=== PATIENT | female | born 1960 | race Hispanic/Latino ===

== ENCOUNTER 2017-11-13 07:29 | Day surgery (SDC) | payer BC ==
[2017-11-13] MEDS ORDERED: ECOTRIN PO ONE (08:04)
[2017-11-13] MEDS ORDERED: NACL 0.9% 500 ML 500 ML IV SCH (09:00)
[2017-11-13] MEDS ORDERED: HEPARIN 10,000 UNITS/10 ML ONE (10:19)
[2017-11-13] MEDS ORDERED: HEPARIN/NS 5000 UNIT/500ML(CATH LAB) 1,000 ML IR ONE (10:19)
[2017-11-13] MEDS ORDERED: XYLOCAINE 2% INFILTRATI ONE (10:19)
[2017-11-13] MEDS ORDERED: CALAN ONE (10:19)
[2017-11-13] MEDS ORDERED: VERSED ONE (10:19)
[2017-11-13] MEDS ORDERED: SUBLIMAZE ONE (10:19)
[2017-11-13] MEDS ORDERED: NITROGLYCERIN SYRINGE 3 ML ONE (10:20)
--- NOTE | 2017-11-13 11:33 | Cardiac Catherization Report ---
INDICATION FOR PROCEDURE: A 57-year-old white female being followed by Dr. Nayeli Gillespie in the office with complaints of chest tightness and shortness of breath on moderate exertion of 2 years' duration, recently getting worse. The patient has a stress EKG performed, which was found to be ischemic with ST-T changes; however, the patient exercised for 3 minutes and 23 seconds and attained a heart rate of 165 beats per minute. Peak blood pressure was 184/69. Because of chest tightness and abnormal stress EKG, she was scheduled for cardiac catheterization for definitive diagnosis and treatment. The patient is aware of the procedure, potential complications and alternatives of therapy available. DESCRIPTION OF PROCEDURE: The patient was brought to the catheterization laboratory in a fasting condition. The patient was evaluated for moderate sedation. The patient was felt to be appropriate and received IV Versed and fentanyl at 10:37 a.m. Subsequently, local anesthesia was given in the right wrist area. Right radial artery puncture was made using 21-gauge arterial puncture needle. Subsequently, a 5-Salvadorean slender sheath was introduced. A 5-Salvadorean multipurpose catheter was used to obtain the angiogram of the left coronary artery in MARTIN projection using an hand injection followed by angiograms of the left coronary artery in multiple views and angiograms of the right coronary artery using the multipurpose catheter. At the end of the procedure, catheter and sheath were removed. The patient was monitored with EKG, pulse oximetry, and hemodynamic monitoring throughout. She was monitored for moderate sedation after 10:48 a.m. The patient tolerated it well without any side effects. The patient is alert, oriented x 3. Breathing normally. Following findings were noted: HEMODYNAMICS: 1. Opening aortic pressure 130/67, left ventricular pressure 132/15. No gradient across the aortic valve. Estimated ejection fraction 55-60%. 2. Left ventriculogram done in MARTIN projection shows normal sized left ventricle with normal contractility. Mitral regurgitation could not be evaluated because of limited amount of dye injected. 3. Right coronary artery dominant vessel arises normally from right coronary cusp, angiographically smooth and normal. 4. Left coronary artery arises normally from left ventricle cusp, left main without significant disease. LAD does not reach the apex, tortuous. However, angiographically smooth and normal, similarly circumflex artery and its branch are tortuous, but angiographically smooth and normal. FINAL IMPRESSION: 1. Normal sized left ventricle with normal contractility. End-diastolic pressure, upper limits of normal. 2. Angiographically, no coronary artery disease is documented. At this time, etiology of her symptoms is not clear. We would recommend to continue risk factor modification. The patient tolerated the procedure well. Findings were explained to the patient. JOB# [id number] JESUS/TED
--- NOTE | 2017-11-13 12:04 | Short Stay Summary ---
Short Stay Documentation Date of service: 11/13/17 - History H&P: obtained from office - Allergies and Medications Current Medications: Allergies No Known Allergies Allergy (Verified 11/13/17 08:31) Home Medications Medication Instructions Recorded Confirmed Last Taken Type Cyanocobalamin (Vitamin B-12) 1,000 mcg IJ QWEEK 11/13/17 11/13/17 11/10/17 History [Physicians Ez Use B-12] 1000mcg Active Medications Sodium Chloride (Nacl 0.9% 500 Ml) 500 mls @ 50 mls/hr IV DIRECT ALEA Stop: 11/13/17 18:59 Last Admin: 11/13/17 08:50 Dose: 50 mls/hr - Brief post op/procedure progress note Date of procedure: 11/13/17 Pre-op diagnosis: chest pain, abnormal stress test Post-op diagnosis: same Procedure: LHC - see cath report Anesthesia: local Estimated blood loss: none Condition: stable - Disposition Condition at discharge: Stable Disposition: [id number] TO HOME OR SELFCARE - Discharge Diagnoses (1) Chest pain Status: Chronic (2) Normal coronary arteries Status: Chronic Short Stay Discharge Plan Activity: advance as tolerated Diet: regular Wound: open to air, keep clean and dry, per your surgeon's advice Follow up with: JONATHAN OSBORNE MD [Primary Care Provider] - 7 Days
[2017-11-13 14:46] VITALS: BP 108/67
== END 2017-11-13 14:30 | disposition home or self-care (01) ==
LOC: CATHLABREC 07:29
PROVIDERS: ATTEND Internal Medicine
DX: R07.89 Other chest pain (principal); R06.02 Shortness of breath; Z79.899 Other long term (current) drug therapy; Z80.9 Family history of malignant neoplasm, unspecified
CPT/HCPCS: 93005; 93010; 93458; 99156; C1894; J1644; J2250; J3010; J7040; Q9967